=== PATIENT | male | born 1965 | race Caucasian/White ===

== ENCOUNTER 2018-05-12 12:32 | Day surgery (SDC) | payer OTHER, MEDICAID, SELFPAY ==
--- NOTE | 2018-05-12 | PATH_ITS ---
[facility] Accession Number: [id number] . 01 Material submitted: . COLON POLYPS AT 15CM X3 . 02 Diagnosis: Colon Polyps at 15 cm: Fragments of tubular adenoma and fragments of hyperplastic polyp (three polyps removed). MRV/05/14/2018 . 02 Electronically signed: . Collin Greene MD, PhD, Pathologist NPI- [id number] . 01 Gross description: . COLON POLYPS AT 15CM X3: Received in formalin are multiple fragment(s) of manzanares, soft tissue measuring 0.8 x 0.5 x 0.3 cm in aggregate submitted entirely in 1 cassette(s) /CKI /CKI . 02 Pathologist provided ICD-10: D12.6 . 02 CPT . 201613 Performed at: 01 [facility] [address] [id number] MD Tobias Moya MD Phone: [phone] Performed at: 02 [facility] [place] [address] [place], [place] [id number] MD Soraya Monte MD Phone: [phone]
[2018-05-12 13:35] VITALS: BP 121/80; PULSE 56; RESP 15; TEMP 36.1; O2SAT 100; BMI 24.3
[2018-05-12] MEDS: SODIUM CHLORIDE 0.9% 1,000 ML 200 ML IV (13:53)
[2018-05-12 14:02] VITALS: BMI 24.3
--- NOTE | 2018-05-12 14:59 | PM.HP.1 ---
History of Present Illness Date Patient Seen: 05/12/18 Time Patient Seen: 14:59 Chief complaint: [id number] SCREENING COLONOSCOPY Narrative: Umesh is a healthy 53-year-old gentleman who presents for his 1st screening colonoscopy. He denies any problems or symptoms related to the function of his GI tract. He denies any family history of colon cancer or inflammatory bowel disease. He reports that he is in his usual state of health and needs colonoscopy as part of a health maintenance program. He specifically requests today that he would like to try to complete the procedure without any sedation. Patient History Family & Social History Family History: Reviewed 05/12/18 by Azalia Ballesteros MD Social History: household members none Meds Home Medications Medication Instructions Recorded Confirmed Type No Known Home Medications 05/11/18 05/11/18 History Allergies Allergy/AdvReac Type Severity Reaction Status Date / Time No Known Drug Allergies Allergy Verified 05/12/18 13:31 Review of Systems Review of Systems All systems reviewed & are unremarkable except as noted in HPI and below Exam Vital Signs (past 8 hours): - 05/12/18 13:35 Temperature 96.9 F L Pulse Rate 56 L Respiratory Rate 15 Blood Pressure 121/80 Pulse Oximetry 100 Oxygen Delivery Method Room Air Narrative Exam Narrative: Pleasant, well-nourished, and well-developed gentleman in no distress. HEENT: Normocephalic and atraumatic, pupils equal round reactive to light accommodation with anicteric sclera Lungs: Clear bilaterally Heart: Regular rate and rhythm Abdomen: Soft, nontender, active bowel sounds Extremities: Warm well perfused and without edema Assessment & Plan Plan: Assessment/Plan Narrative: Pleasant and remarkably healthy 53-year-old gentleman who presents for his 1st screening colonoscopy. We discussed the risks and benefits of the procedure the patient expressed a desire to completed today. Additionally, the patient has an IV in place that we will attempt to complete the procedure with no sedation. The patient is free to change his mind at any point.
[2018-05-12 15:01] VITALS: BMI 24.3
[2018-05-12 15:32] VITALS: BP 113/70; PULSE 61; RESP 15; TEMP 36.3; O2SAT 98
--- NOTE | 2018-05-12 15:37 | PM.OP.1 ---
Operative Date/Time/Diagnoses Date of procedure: 05/12/18 Time of procedure: 15:37 Pre-op diagnosis: Screening Post-op diagnosis: same Procedure & Clinicians Procedure: Colonoscopy to the cecum with snare and cautery polypectomy x3 Same procedure as scheduled: Yes Indications: No prior colonoscopy Surgeon: Azalia Ballesteros Click Yes if Unassisted: Yes Anesthesia Type: None Operative Notes Findings: 1. Excellent prep 2. Scattered diverticulosis with the vast majority disease limited to the sigmoid region 3. Three polyps between 15 and 20 cm. All were semi pedunculated and between 3 and 6 mm in size. All were removed with snare and cautery and retained for pathology. 4. Otherwise normal mucosa 5. Grade 1 internal hemorrhoids Closure Type: not applicable Specimen(s): other (Polyps between 15 and 20 cm) Estimated Blood Loss (mL): 0 Procedure in detail: After obtaining informed consent, the patient was brought to the GI suite and placed in the left lateral decubitus position on the examination table. After placement of appropriate monitors, a time out was held per [facility] protocol. A digital rectal examination was performed and did not reveal any masses or obstructing lesions. The colonoscope was gently passed into the patient's anus and the entire colon navigated to the level of the cecum with minimal difficulty. Once in the cecum, the scope was withdrawn being sure to go before and beyond all mucosal folds and prominences and get an excellent examination. The findings are noted above. At the level of the rectal vault, the scope was retroflexed and the internal anal canal was examined. The scope was straightened and air aspirated from the colon. The instrument was removed from the patient's body and the procedure was concluded. The patient was allowed to awaken from sedation without difficulty and taken to the post-anesthesia care unit in good condition. Total procedure time 21 min Total withdrawal time 8 min 11 sec Complications: none Condition: stable Disposition: PACU Plan for aftercare: 1. Discharge to home 2. Plan for next colonoscopy in 3-5 years depending on final pathology 3. We will contact you with pathology and any additional recommendations.
== END 2018-05-12 15:47 ==
PROVIDERS: Visit Provider Surgery
PROC: 0DJD8ZZ Inspection of Lower Intestinal Tract, Via Natural or Artificial Opening Endoscopic (ICD-10-PCS; CPT 45378; principal; 2018-05-12 14:00)
DX: Z12.11 Encounter for screening for malignant neoplasm of colon (principal); K57.30 Diverticulosis of large intestine without perforation or abscess without bleeding; K64.0 First degree hemorrhoids; D12.6 Benign neoplasm of colon, unspecified
CPT/HCPCS: 45385; 88305; 99152